=== PATIENT | male | born 1950 | race Caucasian/White ===

== ENCOUNTER → 2018-05-04 | Outpatient (REF) ==
[2005-11-18 09:10] VITALS: TEMP 97.1
[~2018-05-04] MED LIST: ALPHAGAN OPHTH D5 ML OU; ASPIRIN 81M81 MG/TA2 PO; CARTIA XT180 MG PO; MULTI VITAMINS1 TAB PO; OMEGA-3 1000 MG1 CAP PO; SAW PALMETTO 101 SGL PO; TRUSOPT OCUMETE10 ML OS; XALATAN EYE DROPS OS; XARELTO20 MG PO
[2018-05-04 17:13] LABS: THYROID STIMULATING HORMONE 2.2 uIU/mL (0.465-4.680)
[2018-05-04 17:55] LABS: PSA-TOTAL 2.02 ng/mL (0-4)
== END ==
LOC: ZLAB.WCH 16:13
PROVIDERS: Internal Medicine
DX: Z01.89 Encounter for other specified special examinations (principal)
CPT/HCPCS: G0103

== ENCOUNTER → 2021-04-12 | Outpatient (REF) ==
[2005-11-18 09:10] VITALS: TEMP 97.1
== END ==
LOC: COL.CARD 07:35
DX: Z01.810 Encounter for preprocedural cardiovascular examination (principal)